=== PATIENT | female | born 1985 | race Caucasian/White ===

== ENCOUNTER → 2017-08-27 16:22 | Outpatient (CLI) | payer OTHER, SELFPAY ==
--- NOTE | 2017-08-27 16:31 | XR_ITS ---
XR knee LT 3V Ordering Physician: Surekha Castro Patient Age: 32 years: Female HISTORY: ITS.REASON: LEFT KNEE PAIN Medial and posterior knee pain no injury TECHNIQUE: 3 views left knee COMPARISON :None field FINDINGS Left knee intact with no fracture. Upper normal fluid suprapatella bursa. No prominent joint effusion. The joint spaces well-maintained with only slight sharpening the joint margins. IMPRESSION: Left knee intact. No fracture. Early sharpening the joint margins could reflect very early degenerative changes a but joint space well maintained on this nonweightbearing film.upper normal joint fluid
== END ==
PROVIDERS: PCP Nurse Practitioner Family; Visit Provider Nurse Practitioner Family
DX: M25.562 Pain in left knee (principal)
CPT/HCPCS: 73562

== ENCOUNTER 2019-11-18 18:49 | Emergency (ER) | payer OTHER, SELFPAY ==
[2019-11-18 19:07] VITALS: BP 95/64; PULSE 68; RESP 21; TEMP 36.4; O2SAT 97; BMI 30.9
[2019-11-18 19:07] LABS: Apearance,Urine Slightly Cloudy (Clear); Color,Urine Dark Yellow (Yellow)
[2019-11-18 19:08] LABS: Blood, Urine Trace (Negative); Glucose,Urine (UA) Negative (Negative); Ketones,Urine TRACE (Negative); Protein,Urine 2+ (Negative)
[2019-11-18 19:09] LABS: Bilirubin,Urine Trace (Negative); UTC Leukocyte Esterase,Urine 1+ (Negative); Urobilinogen,Urine 1 EU/dl (0.2)
[2019-11-18 19:10] LABS: UTC Nitrate,Urine Negative (Negative)
--- NOTE | 2019-11-18 19:16 | HMH.EDUTC ---
[facility] [place] Clinical Impression: UTI (urinary tract infection) Qualifiers: Urinary tract infection type: site unspecified Hematuria presence: without hematuria Qualified Code(s): N39.0 - Urinary tract infection, site not specified Disposition: Home, Self-Care Condition on Discharge: Good Instructions: Urinary Tract Infection, DI for Urinary Tract Infection (UTI) Additional Instructions: Drink plenty of fluids. Take tylenol or ibuprofen for pain or fever. Take the medications as directed. Follow up with your regular doctor. GO TO THE ER FOR ANY WORSENING SYMPTOMS The pyridium will make your urine turn orange, this is an expected side effect. It will stain your clothes if it comes into contact with them. Prescriptions: Ondansetron [Zofran 4mg ODT] 4 mg PO Q8HP PRN #20 tab.rapdis PRN Reason: Nausea Transmission Status: Pending to [employer] Sulfamethoxazole/Trimethoprim [Bactrim DS tablet] 1 each PO BID 7 Days #14 tab Transmission Status: Pending to [employer] Phenazopyridine HCl [Pyridium 200mg Tablet] 200 pow PO TID #6 tab Transmission Status: Pending to [employer] Referrals: Sonali Gan [Primary Care Provider] - Forms: Work/School Release Time of Disposition: 19:20 Medical Decision Making - Medical Records Medical records reviewed: No: I reviewed the patient's medical records. - Michael Inquiry Pt receiving controlled substance: No Vital Signs: 11/18/19 19:07 Temperature 97.6 F Temperature Source Oral Pulse Rate [Left Brachial] 68 Respiratory Rate 21 Blood Pressure [Left Arm] 95/64 L Blood Pressure Mean [Left Arm] 74 Blood Pressure Source [Left Arm] Automatic Cuff Blood Pressure Position [Left Arm] Sitting 02 Sat by Pulse Oximetry 97 Oxygen Delivery Method Room Air - Lab Data Lab results reviewed: Yes: I reviewed the patient's lab results. Lab Results 11/18/19 18:58: Urine Color Dark yellow, Urine Appearance Slightly cloudy, Urine pH 6.0, Ur Specific [place] 1.020, Urine Protein 2+, Urine Glucose (UA) Negative, Urine Ketones Trace, Urine Blood Trace, Urine Nitrate Negative, Urine Bilirubin Trace, Urine Urobilinogen 1, Ur Leukocyte Esterase 1+ A [facility] [place] - General Stated complaint: lower back pain\ Time Seen by Provider: 11/18/19 19:10 Mode of Arrival: Ambulatory Source of Information: Patient Limitations: No Limitations Description of Symptoms (Recalled from Triage Doc. by RN): PATIENT C/O LOWER BACK PAIN, BURNING WITH URINATION AND FREQUENCY X 1 WEEK HEENT Symptoms (Recalled from RN notes): No Resp Symptoms (Recalled from RN notes): No Skin Symptoms (Recalled from RN notes): No MS Symptoms (Recalled from RN notes): No Functional Status (Recalled from RN notes): WNL - History of Present Illness Provider Complaint: She c/o low back pain and burning while urinating for the past 2 days. She denies any vaginal bleeding, vaginal discharge or other symptoms. - Related Data Home Medications Medication Instructions Recorded Confirmed Estrogens, Conjugated [Premarin] 1 tab PO DAILY 05/01/19 11/18/19 Fluoxetine HCl [Prozac 20mg 60 mg PO DAILY 05/01/19 11/18/19 Capsule] Gabapentin [Gabapentin 300mg Cap] 300 mg PO TID 05/01/19 11/18/19 buprenorphine HCL [Buprenorphine 12 mg PO DAILY 05/01/19 11/18/19 HCl] Atorvastatin Calcium [Lipitor 40mg 40 mg PO HS 11/18/19 11/18/19 Tab] buPROPion HCL [Wellbutrin XL] 150 mg PO DAILY 11/18/19 11/18/19 Previous Rx's Medication Instructions Recorded Ondansetron [Zofran 4mg ODT] 4 mg PO Q8HP PRN #20 tab.rapdis 11/18/19 Phenazopyridine HCl [Pyridium 200 pow PO TID #6 tab 11/18/19 200mg Tablet] Sulfamethoxazole/Trimethoprim 1 each PO BID 7 Days #14 tab 11/18/19 [Bactrim DS tablet] Allergies Allergy/AdvReac Type Severity Reaction Status Date / Time codeine Allergy Verified 11/18/19 19:10 - Worker's Comp Is this a Worker's Comp case?: No [facility]
[2019-11-18 19:23] VITALS: BP 95/64; PULSE 68; RESP 21; TEMP 36.4; O2SAT 97
== END 2019-11-18 19:25 | disposition home or self-care (01) ==
PROVIDERS: Emergency Provider Nurse Practitioner Family; PCP Nurse Practitioner Family
DX: N30.00 Acute cystitis without hematuria (principal); F17.210 Nicotine dependence, cigarettes, uncomplicated; Z88.5 Allergy status to narcotic agent
CPT/HCPCS: 81003; 87086; 99201

== ENCOUNTER → 2020-01-17 10:32 | Outpatient (CLI) | payer OTHER, SELFPAY ==
--- NOTE | 2020-01-17 10:37 | XR_ITS ---
PROCEDURE: XR LUMBAR SPINE MIN 4V CLINICAL INDICATION: LUMBAR BACK PAIN W/ RADICULOPATHY COMPARISON: CR CXR CHEST(2 VIEWS-NOT PORTABLE) from 06/18/2015 FINDINGS: There is normal curvature and alignment. There is a transitional vertebrae at the lumbosacral junction with unilateral pseudoarthrosis of L5 on the left side. There are hypoplastic 12th ribs bilaterally. All lumbar vertebrae appear intact and disc spaces are well maintained. There is no pars defect. The SI joints appear normal. 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 Dictated by: Dr. Abdoul Fenton MD 01/17/2020 11:09 Dr. Abdoul Fenton MD in [place] 01/17/2020 11:09
== END ==
PROVIDERS: PCP Nurse Practitioner Family; Visit Provider Nurse Practitioner Family
DX: M54.16 Radiculopathy, lumbar region (principal)
CPT/HCPCS: 72110

== ENCOUNTER → 2020-03-07 15:08 | Outpatient (CLI) | payer OTHER, SELFPAY ==
[2020-03-09 11:27] LABS: Covid-19 Nasal PCR Sendout P&C NEGATIVE
== END ==
PROVIDERS: PCP Family Medicine; Visit Provider Family Medicine
DX: Z03.818 Encounter for observation for suspected exposure to other biological agents ruled out (principal)
CPT/HCPCS: U0004

== ENCOUNTER → 2020-06-01 07:54 | Outpatient (CLI) | payer OTHER, SELFPAY ==
--- NOTE | 2020-06-01 07:59 | MR_ITS ---
PROCEDURE: MR LUMBAR SPINE WO CON CLINICAL INDICATION: LBP Pt c/o lbp radiating down rt leg x1year. Pt states pain is getting worse. Pt denies injury, trauma, or prior surgery to lumbar spine. L-spine x-rays done 01/17/20. COMPARISON: CR XR LUMBAR SPINE MIN 4V from 01/17/2020 TECHNIQUE: Standard multiplanar multiecho sequences are performed without contrast. 3-D MIP and myelographic images are also rendered and reviewed FINDINGS: There is normal alignment. Spinal cord ends at the L2 level. L1-L2: Unremarkable. L2-L3: Unremarkable. L3-L4: Unremarkable. L4-5: Mild facet and ligamentum hypertrophy with mild bilateral foraminal narrowing L5-S1: Mild facet and ligamentum hypertrophy with mild bilateral foraminal narrowing. Small left renal cyst at 4 mm. The the minimal lumbar curvature convex left. The incidental note is made of a T1 and T2 hyperintensity in the S2 vertebral body at 10 mm consistent with a lipoma or hemangioma. IMPRESSION: 1. Mild facet and ligamentum hypertrophy at L4-5 and L5-S1 with mild bilateral foraminal narrowing. 2. No extruded herniated disc canal stenosis or other significant anomaly with other nonacute findings as described above. Dictated by: Abraham Nicolas MD 06/03/2020 10:27 Abraham Nicolas MD in [place] 06/03/2020 10:27
== END ==
PROVIDERS: PCP Family Medicine; Visit Provider Nurse Practitioner Family
DX: M54.16 Radiculopathy, lumbar region (principal); R94.130 Abnormal response to nerve stimulation, unspecified
CPT/HCPCS: 72148; 76376

== ENCOUNTER 2020-10-03 16:50 | Emergency (ER) | payer OTHER, SELFPAY ==
--- NOTE | 2020-10-03 17:17 | PC.NURSE ---
Heart Tones 143 BPM
[2020-10-03 17:27] LABS: UTC Strep Screen (Rapid) Positive (Negative)
[2020-10-03 17:37] VITALS: BP 111/71; PULSE 91; RESP 13; TEMP 36.6; O2SAT 98; BMI 31.7
--- NOTE | 2020-10-03 17:40 | HMH.EDUTC ---
[facility] [place] Clinical Impression: Strep throat Disposition: Home, Self-Care Condition on Discharge: Good Instructions: Strep Throat, DI for Strep Throat, Amoxicillin Additional Instructions: *Monitor Temp, Over the counter Motrin or Tylenol as directed/as needed Tylenol every 4 hours and Motrin every 6 hours (as long as your family doctor has told you that you can take it) for fever or pain. and straight to ER if unable to lower temp less than 101.0 after medication given *Warm salt water gargles may help to soothe the throat *Throat Lozenges *Warm fluids like tea with honey may help to soothe the throat *Sleep elevated *Humidifier/Vaporizer *If you did not take Penicillin shot or was unable to, start taking antibiotic immediately and make sure that you take it for the FULL length of time although you should start to feel better in 24-48 hours *change toothbrush and toothpaste 24-48 hours after starting to take antibiotics so you do not reinfect yourself Monitor Temp. Tylenol and/or Ibuprofen as needed. ER if fever is no less than 101 despite alternating Tylenol and Ibuprofen * Encourage fluids, water, Gatorade, powerade, pedialyte if /toddler/or child *Cold fluids, popsicles and ice cream may feel good on his throat Follow up IMMEDIATELY for new or worsening symptoms or no Noticeable improvement over the next 48-72 hours. 911 for difficulty breathing or swallowing Prescriptions: Amoxicillin [Amoxicillin 500mg Cap] 500 mg PO TID #30 cap Transmission Status: Pending to [id number] Referrals: Madai Powers APRN [Primary Care Provider] - As needed Forms: Work/School Release Time of Disposition: 17:42 Medical Decision Making - Michael Inquiry Pt receiving controlled substance: No Michael was queried for this patient: No Vital Signs: 10/03/20 17:37 Temperature 97.8 F Temperature Source Oral Pulse Rate [Left] 91 H Respiratory Rate 13 Blood Pressure [Right Arm] 111/71 Blood Pressure Mean [Right Arm] 84 02 Sat by Pulse Oximetry 98 - Lab Data Lab results reviewed: Yes: I reviewed the patient's lab results. Lab Results 10/03/20 17:25: Strep Scn Rapid Clinic Positive A [facility] [place] HPI - General Stated complaint: sore throat,cough, Time Seen by Provider: 10/03/20 17:40 Mode of Arrival: Ambulatory Source of Information: Patient Limitations: No Limitations Description of Symptoms (Recalled from Triage Doc. by RN): pt c/o a sore throat and cough. HEENT Symptoms (Recalled from RN notes): Yes (sore throat) Resp Symptoms (Recalled from RN notes): Yes (cough) Skin Symptoms (Recalled from RN notes): No MS Symptoms (Recalled from RN notes): No Functional Status (Recalled from RN notes): na - History of Present Illness Provider Complaint: Patient states that she has been having sore throat and cough for several days and has continued to get worse States that her throat hurts when she swallows and coughs and feels like it is swollen with white patchy areas on her throat - Related Data Home Medications Medication Instructions Recorded Confirmed Estrogens, Conjugated [Premarin] 1 tab PO DAILY 05/01/19 11/18/19 Fluoxetine HCl [Prozac 20mg 60 mg PO DAILY 05/01/19 11/18/19 Capsule] Gabapentin [Gabapentin 300mg Cap] 300 mg PO TID 05/01/19 11/18/19 buprenorphine HCL [Buprenorphine 12 mg PO DAILY 05/01/19 11/18/19 HCl] Atorvastatin Calcium [Lipitor 40mg 40 mg PO HS 11/18/19 11/18/19 Tab] buPROPion HCL [Wellbutrin XL] 150 mg PO DAILY 11/18/19 11/18/19 Previous Rx's Medication Instructions Recorded Ondansetron [Zofran 4mg ODT] 4 mg PO Q8HP PRN #20 tab.rapdis 11/18/19 Phenazopyridine HCl [Pyridium 200 pow PO TID #6 tab 11/18/19 200mg Tablet] Sulfamethoxazole/Trimethoprim 1 each PO BID 7 Days #14 tab 11/18/19 [Bactrim DS tablet] Amoxicillin [Amoxicillin 500mg 500 mg PO TID #30 cap 10/03/20 Cap] Allergies Allergy/AdvReac Type Severity Reaction Statu
[2020-10-03 18:06] VITALS: BP 109/75; PULSE 86; RESP 14; TEMP 36.6
== END 2020-10-03 18:07 | disposition home or self-care (01) ==
PROVIDERS: Emergency Provider Nurse Practitioner; PCP Nurse Practitioner Family
DX: J02.0 Streptococcal pharyngitis (principal); F17.210 Nicotine dependence, cigarettes, uncomplicated
CPT/HCPCS: 87880; 99202; G0463

== ENCOUNTER → 2021-03-26 13:08 | Outpatient (CLI) | payer OTHER, SELFPAY | PROVIDERS: Visit Provider Nurse Practitioner | DX: Z20.822 Contact with and (suspected) exposure to COVID-19 (principal) | CPT/HCPCS: C9803; U0003; U0005 ==

== ENCOUNTER 2021-04-03 10:49 | Emergency (ER) | payer OTHER, SELFPAY ==
[2021-04-03 12:45] VITALS: BP 0/0; PULSE 0; RESP 0; TEMP -17.7; TEMP 0
== END 2021-04-03 12:50 | disposition left against medical advice (07) ==
PROVIDERS: Emergency Provider Nurse Practitioner; PCP Nurse Practitioner Family
DX: Z53.21 Procedure and treatment not carried out due to patient leaving prior to being seen by health care provider (principal)

== ENCOUNTER 2021-06-21 12:09 | Emergency (ER) | payer OTHER, SELFPAY ==
[2021-06-21 12:15] VITALS: BP 102/62; PULSE 78; RESP 18; TEMP 36.7; O2SAT 98
[2021-06-21 12:36] LABS: Apearance,Urine Cloudy (Clear); Bilirubin,Urine Negative (Negative); Blood, Urine Negative (Negative); Color,Urine Dark Yellow (Yellow); Glucose,Urine (UA) Negative (Negative); Ketones,Urine Negative (Negative); PH,Urine 7.5 (5.0-8.5); Protein,Urine Negative (Negative); UTC Leukocyte Esterase,Urine 2+ (Negative); UTC Nitrate,Urine Negative (Negative); Urobilinogen,Urine 2 EU/dl (0.2)
[2021-06-21 12:38] VITALS: BP 102/62; PULSE 78; RESP 18; TEMP 36.7; O2SAT 98
--- NOTE | 2021-06-21 12:53 | HMH.EDUTC ---
[facility] [place] Clinical Impression: UTI (urinary tract infection) Disposition: Home, Self-Care Condition on Discharge: Good Instructions: DI for Urinary Tract Infection (UTI) Additional Instructions: Take all antibiotics as prescribed until gone Drink plenty of fluids, urinate frequently Urine culture results should be available Thursday evening Prescriptions: Ciprofloxacin HCl [Cipro 500mg Tab] 500 mg PO BID 5 Days #10 tab Transmission Status: Pending to [employer] Phenazopyridine HCl [Pyridium 200mg Tablet] 200 pow PO TID #6 tab Transmission Status: Pending to [employer] Referrals: Madai Powers APRN [Primary Care Provider] - Forms: Work/School Release Time of Disposition: 13:04 Medical Decision Making - Michael Inquiry Pt receiving controlled substance: No Vital Signs: 06/21/21 12:15 06/21/21 12:38 Temperature 98.0 F 98.0 F Temperature Source Oral Pulse Rate 78 Pulse Rate [Right Brachial] 78 Respiratory Rate 18 18 Blood Pressure 102/62 L Blood Pressure [Right Arm] 102/62 L Blood Pressure Mean [Right Arm] 75 Blood Pressure Source [Right Arm] Automatic Cuff Blood Pressure Position [Right Arm] Sitting 02 Sat by Pulse Oximetry 98 Oxygen Delivery Method Room Air - Lab Data Lab results reviewed: Yes: I reviewed the patient's lab results. Lab Results 06/21/21 12:32: Urine Color Dark yellow, Urine Appearance Cloudy, Urine pH 7.5, Ur Specific [place] 1.020, Urine Protein Negative, Urine Glucose (UA) Negative, Urine Ketones Negative, Urine Blood Negative, Urine Nitrate Negative, Urine Bilirubin Negative, Urine Urobilinogen 2, Ur Leukocyte Esterase 2+ A Orders (Tests/Meds): ORDERS Category Date Time Status Urine Culture Stat Micro 06/21/21 12:32 Received [facility] [place] HPI - General Stated complaint: trouble urinating Time Seen by Provider: 06/21/21 12:56 Mode of Arrival: Ambulatory Source of Information: Patient Limitations: No Limitations Description of Symptoms (Recalled from Triage Doc. by RN): PATIENT C/O BURNING WITH URINATION, LOWER ABDOMINAL PRESSURE AND LOWER BACK PAIN SINCE YESTERDAY HEENT Symptoms (Recalled from RN notes): No Resp Symptoms (Recalled from RN notes): No Skin Symptoms (Recalled from RN notes): No MS Symptoms (Recalled from RN notes): No Functional Status (Recalled from RN notes): WNL - History of Present Illness Provider Complaint: Low back pain, dysuria, suprapubic pain and pressure X 2 days. No fever. No nausea or vomiting. Onset (ago): day(s) (2) Location: back, abdomen Quality: burning Relieving factors: none Exacerbating factors: none Associated symptoms: denies other symptoms Treatments prior to arrival: none - Related Data Home Medications Medication Instructions Recorded Confirmed Estrogens, Conjugated [Premarin] 1 tab PO DAILY 05/01/19 11/18/19 Fluoxetine HCl [Prozac 20mg 60 mg PO DAILY 05/01/19 11/18/19 Capsule] Gabapentin [Gabapentin 300mg Cap] 300 mg PO TID 05/01/19 11/18/19 buprenorphine HCL [Buprenorphine 12 mg PO DAILY 05/01/19 11/18/19 HCl] Atorvastatin Calcium [Lipitor 40mg 40 mg PO HS 11/18/19 11/18/19 Tab] buPROPion HCL [Wellbutrin XL] 150 mg PO DAILY 11/18/19 11/18/19 Previous Rx's Medication Instructions Recorded Ondansetron [Zofran 4mg ODT] 4 mg PO Q8HP PRN #20 tab.rapdis 11/18/19 Phenazopyridine HCl [Pyridium 200 pow PO TID #6 tab 11/18/19 200mg Tablet] Sulfamethoxazole/Trimethoprim 1 each PO BID 7 Days #14 tab 11/18/19 [Bactrim DS tablet] Amoxicillin [Amoxicillin 500mg 500 mg PO TID #30 cap 10/03/20 Cap] Ciprofloxacin HCl [Cipro 500mg 500 mg PO BID 5 Days #10 tab 06/21/21 Tab] Phenazopyridine HCl [Pyridium 200 pow PO TID #6 tab 06/21/21 200mg Tablet] Allergies Allergy/AdvReac Type Severity Reaction Status Date / Time codeine Allergy Verified 11/18/19 19:10 - Worker's Comp Is this a Worker's Comp case?: No H History
== END 2021-06-21 13:13 | disposition home or self-care (01) ==
PROVIDERS: Emergency Provider Physician Assistant; PCP Nurse Practitioner Family
DX: N30.00 Acute cystitis without hematuria (principal); F17.210 Nicotine dependence, cigarettes, uncomplicated
CPT/HCPCS: 81003; 87086; 99212; G0463

== ENCOUNTER 2022-01-17 15:10 | Emergency (ER) | payer OTHER, SELFPAY ==
[2022-01-17 15:37] VITALS: BP 119/72; PULSE 73; RESP 18; TEMP 36.9; O2SAT 99; BMI 29.2
[2022-01-17 16:05] VITALS: BP 119/72; PULSE 73; RESP 18; TEMP 36.9; O2SAT 99; BMI 29.0
--- NOTE | 2022-01-17 16:30 | EXP.UTC ---
Discharge Plan Disposition Patient Disposition: Home, Self-Care Condition: Good Prescriptions Prescriptions: New amoxicillin 875 mg tablet 875 mg PO Q12H Qty: 20 0RF meclizine 25 mg tablet 25 mg PO TID PRN (Reason: dizziness) Qty: 15 0RF ibuprofen [IBU] 800 mg tablet 800 mg PO TIDP PRN (Reason: Moderate Pain) Qty: 20 0RF methylprednisolone [Medrol (Evangelista)] 4 mg tablets,dose pack See Rx Instructions .Route .COMPLEX 6 Days Qty: 21 0RF Rx Instructions: taper pack; No Action gabapentin 300 mg capsule 300 mg PO TID Qty: 90 3RF atorvastatin 40 mg tablet 40 mg PO HS Qty: 90 3RF conjugated estrogens 1.25 mg tablet 1.25 mg PO DAILY Qty: 90 3RF buprenorphine HCl 8 MG tablet, sublingual 12 mg PO DAILY Referrals Follow up/Referrals: Marko Reagan MD [Primary Care Provider] - See instructions Activity Restrictions/Add. Instructions Additional Instructions/Restrictions: *Monitor Temp, Over the counter Motrin or Tylenol as directed/as needed Tylenol every 4 hours and Motrin every 6 hours (as long as your family doctor has told you that you can take it) for fever or pain. and straight to ER if unable to lower temp less than 101.0 after medication given *Warm salt water gargles may help to soothe the throat *Throat Lozenges? *Warm fluids like tea with honey may help to soothe the throat? *Sleep elevated *Humidifier/Vaporizer Take medication as prescribed Follow up IMMEDIATELY for new or worsening symptoms or no Noticeable improvement over the next 48-72 hours. 911 for difficulty breathing or swallowing Clinical Impressions Clinical Impression: Otitis media Stand Alone Forms Stand Alone Forms: Work/School Release Instructions Patient Instructions: Middle Ear Infection, DI for Vertigo Discharge ED Provider: [facility] [place] HPI General Stated complaint: dizzy and stuffie Mode of Arrival: Ambulatory Source of Information: Patient Limitations: No Limitations Time Seen by Provider: 01/17/22 16:30 Description of Symptoms (Recalled from Triage Doc. by RN): PATIENT C/O DIZZINESS, CHILLS, AND PAIN TO BACK OF LEFT LEG HEENT Symptoms (Recalled from RN notes): Yes Resp Symptoms (Recalled from RN notes): No Skin Symptoms (Recalled from RN notes): No MS Symptoms (Recalled from RN notes): No Functional Status (Recalled from RN notes): WNL History of Present Illness Provider Complaint: Patient states that she started feeling bad yesterday States that she noticed if she would get dizzy if she turned her head too quickly or made a sudden movement she would feel dizzy State that her ears have felt full and sinus congestion and pressure States that also for about a month she has been having pain on and off in the back of her left leg States that it is a stinging like pain on and off Related Data Home Medications Medication Instructions Recorded Confirmed buprenorphine HCl 8 mg sublingual 12 mg PO DAILY drug addiction 05/01/19 12/06/21 tablet Previous Rx's Medication Instructions Recorded atorvastatin 40 mg tablet 40 mg PO HS Cholesterol #90 tabs 07/22/21 conjugated estrogens 1.25 mg tablet 1.25 mg PO DAILY hormones 07/22/21 replacement #90 tabs gabapentin 300 mg capsule 300 mg PO TID neuropathy #90 caps 12/06/21 amoxicillin 875 mg tablet 875 mg PO Q12H #20 tabs 01/17/22 ibuprofen 800 mg tablet (IBU) 800 mg PO TIDP PRN Moderate Pain 01/17/22 #20 tabs meclizine 25 mg tablet 25 mg PO TID PRN dizziness #15 tabs 01/17/22 methylprednisolone 4 mg tablets in See Rx Instructions .Route 01/17/22 a dose pack (Medrol (Evangelista)) .COMPLEX 6 days #21 tabs Allergies Allergy/AdvReac Type Severity Reaction Status Date / Time codeine Allergy Verified 12/06/21 13:59 Worker's Comp Is this a Worker's Comp case?: No PFSH PFS Medical History (Updated 01/17/22 @ 17:07 by Alta Ji APRN) Anxiety Depression Hyperlipidemia Urinary tract infecti
[2022-01-17 17:10] VITALS: BP 119/72; PULSE 73; RESP 18; TEMP 36.9; O2SAT 99
== END 2022-01-17 17:14 | disposition home or self-care (01) ==
PROVIDERS: Emergency Provider Nurse Practitioner; PCP Family Medicine
DX: H66.90 Otitis media, unspecified, unspecified ear (principal); M79.605 Pain in left leg
CPT/HCPCS: 99212; G0463

== ENCOUNTER 2022-06-08 13:26 | Emergency (ER) | payer OTHER, SELFPAY ==
[2022-06-08 14:00] VITALS: BP 118/69; PULSE 81; RESP 18; TEMP 37.2; O2SAT 97; BMI 29.0
[2022-06-08 14:14] LABS: Apearance,Urine Cloudy (Clear); Bilirubin,Urine Negative (Negative); Blood, Urine Trace (Negative); Color,Urine Yellow (Yellow); Glucose,Urine (UA) Negative (Negative); Ketones,Urine Negative (Negative); PH,Urine 7.5 (5.0-8.5); Protein,Urine Trace (Negative); Specific Gravity, Urine 1.015 (1.005-1.030); UTC Leukocyte Esterase,Urine 3+ (Negative); UTC Nitrate,Urine Positive (Negative); Urobilinogen,Urine 0.2 EU/dl (0.2)
--- NOTE | 2022-06-08 14:25 | EXP.UTC ---
Discharge Plan Disposition Patient Disposition: Home, Self-Care Condition: Good Prescriptions Prescriptions: New cefdinir 300 mg capsule 300 mg PO BID Qty: 20 0RF phenazopyridine [Pyridium] 200 mg tablet 200 mg PO Q8H 2 Days Qty: 6 0RF No Action gabapentin 300 mg capsule 300 mg PO TID Qty: 90 3RF atorvastatin 40 mg tablet 40 mg PO HS Qty: 90 3RF conjugated estrogens 1.25 mg tablet 1.25 mg PO DAILY Qty: 90 3RF buprenorphine HCl 8 MG tablet, sublingual 12 mg PO DAILY Referrals Follow up/Referrals: Marko Reagan MD [Primary Care Provider] - See instructions Activity Restrictions/Add. Instructions Additional Instructions/Restrictions: *Increase fluids. Water not Soda or Tea *Start antibiotic tomorrow your got a shot in the [facility] today and be sure to take as ordered for the FULL length of time although you should start to see improvement over the next 48 hours *Pyridium as needed Remember this medication will turn your urine . This is normal but it will stain what ever it gets on *You should not use Pyridium for more than 48 hours. If so , follow up with your primary physician to review urine culture and ensure that antibiotic is adequate for infection *Be SURE to follow up anytime for new or worsening symptoms with your family doctor. AND in 48 hours for urine culture results with your family doctor, if you do not have a doctor then you may call back to the [facility] for urine culture results and further treatment. We do recommend that you choose and establish care with a Primary Care Physician. ?AND follow up with them ?in 10-14 days to repeat UA to ensure infection is resolved and blood no longer present *Be sure to let your PCP know that we sent urine cultures from the [facility] so they can follow up to ensure that you area the on the correct antibiotic Call your doctor office and make appointment for 48 hours (2 days from today) ?to follow up and get the results of your urine culture and further treatment Clinical Impressions Clinical Impression: UTI (urinary tract infection) Qualifiers: Urinary tract infection type: site unspecified Hematuria presence: with hematuria Qualified Code(s): N39.0 - Urinary tract infection, site not specified Instructions Patient Instructions: Urinary Tract Infection, DI for Urinary Tract Infection (UTI) Discharge ED Provider: [facility] [place] General Stated complaint: possible uti Mode of Arrival: Ambulatory Source of Information: Patient Limitations: No Limitations Time Seen by Provider: 06/08/22 14:25 Description of Symptoms (Recalled from Triage Doc. by RN): PATIENT C/O LOWER BACK AND ABDOMINAL PAIN AND BURNING/PAIN WITH URINATION X 1 WEEK HEENT Symptoms (Recalled from RN notes): No Resp Symptoms (Recalled from RN notes): No Skin Symptoms (Recalled from RN notes): No MS Symptoms (Recalled from RN notes): No Functional Status (Recalled from RN notes): WNL History of Present Illness Provider Complaint: Patient states that she has been having achy like feeling in her lower back and pressure like feeling in her lower abdomen and burning when she urinates for about a week States that she feels like she may have a UTI Denies fever, denies chills Related Data Home Medications Medication Instructions Recorded Confirmed buprenorphine HCl 8 mg sublingual 12 mg PO DAILY drug addiction 05/01/19 04/18/22 tablet Previous Rx's Medication Instructions Recorded atorvastatin 40 mg tablet 40 mg PO HS Cholesterol #90 tabs 04/18/22 conjugated estrogens 1.25 mg tablet 1.25 mg PO DAILY hormones 04/18/22 replacement #90 tabs gabapentin 300 mg capsule 300 mg PO TID neuropathy #90 caps 04/18/22 cefdinir 300 mg capsule 300 mg PO BID #20 caps 06/08/22 phenazopyridine 200 mg tablet 200 mg PO Q8H pain 2 days #6 tabs 06/08/22 (Pyridium) Allergies Allergy/AdvReac Type Severity Reaction Status Date / Time codeine Allergy Verified 04/18/22 15:07 Worker's Comp
[2022-06-08 14:55] VITALS: BP 118/69; PULSE 81; RESP 18; TEMP 37.2; O2SAT 97
== END 2022-06-08 15:09 | disposition home or self-care (01) ==
PROVIDERS: Emergency Provider Nurse Practitioner; PCP Family Medicine
DX: N39.0 Urinary tract infection, site not specified (principal); R10.30 Lower abdominal pain, unspecified; M54.50 Low back pain, unspecified; B96.20 Unspecified Escherichia coli [E. coli] as the cause of diseases classified elsewhere
CPT/HCPCS: 96372; 81003; 87086; 87088; 87186; 99212; 99214; G0463; J0696

== ENCOUNTER → 2022-06-17 16:25 | Outpatient (CLI) | payer OTHER, SELFPAY ==
[2022-06-17 17:53] LABS: Chloride 98 mmol/L (98-107)
[2022-06-17 17:54] LABS: Potassium 4.2 mmoL/L (3.5-5.1); Sodium 137 mmol/L (136-145)
[2022-06-17 17:56] LABS: Blood Urea Nitrogen 12 mg/dl (7-17); Estimated Glomerular Filt Rate 46 ml/min (>60); GFR (African American) 56 ML/MIN (>60)
[2022-06-17 17:57] LABS: Alanine Aminotransferase 11 U/L (12-78); Albumin Level 4.1 g/dl (3.5-5.0); Albumin/Globulin Ratio 1.7 (1.1-1.8); Alkaline Phosphatase 75 U/L (38-126); Anion Gap 13.2 mEq/L (5-15); Aspartate Amino Transferase 22 U/L (14-36); Bilirubin,Total 0.3 mg/dl (0.2-1.3); Calcium 8.6 mg/dl (8.4-10.2); Carbon Dioxide 30 mmol/L (22.0-30.0); Globulin 2.4 g/dL (1.3-3.2); Glucose 78 mg/dl (74-100); Total Protein,Serum 6.5 g/dl (6.3-8.2)
[2022-06-19 20:08] LABS: QuantiFERON-TB Gold Plus Negative (Negative)
[2022-06-21 17:42] LABS: HIV Screen 4th Generation wRfx NON REACTIVE; Rapid Plasma Reagin Ab Titer NON REACTIVE
[2022-06-21 17:43] LABS: Hep B Core Ab, Total NEGATIVE; Hepatitis B Surface Antigen NEGATIVE; Hepatitis C Antibody NON REACTIVE
== END ==
PROVIDERS: Family Medicine; PCP Family Medicine
DX: F11.20 Opioid dependence, uncomplicated (principal); F13.10 Sedative, hypnotic or anxiolytic abuse, uncomplicated; R53.83 Other fatigue; Z11.4 Encounter for screening for human immunodeficiency virus [HIV]
CPT/HCPCS: 36415; 80053; 86480; 86593; 86703; 86704; 87340; 87380; G0432

== ENCOUNTER → 2022-09-02 11:50 | Outpatient (CLI) | payer OTHER, SELFPAY ==
[2022-09-04 09:04] LABS: HSV 2 IgG, Type Spec <0.91 index (0.00-0.90)
[2022-09-04 11:24] LABS: Rapid Plasma Reagin Ab Titer Non Reactive (NonRea<1:1)
== END ==
PROVIDERS: PCP Family Medicine; Visit Provider Family Medicine
DX: Z20.2 Contact with and (suspected) exposure to infections with a predominantly sexual mode of transmission (principal); B99.9 Unspecified infectious disease; B95.7 Other staphylococcus as the cause of diseases classified elsewhere
CPT/HCPCS: 86593; 86695; 86790; 87070; 87077; 87186; 87205

== ENCOUNTER 2023-01-18 13:35 | Emergency (ER) | payer OTHER, SELFPAY ==
[2023-01-18 13:50] VITALS: BP 124/70; PULSE 74; RESP 18; TEMP 36.7; O2SAT 100; BMI 30.1
[2023-01-18 14:07] LABS: UTC Strep Screen (Rapid) Negative (Negative)
--- NOTE | 2023-01-18 14:30 | EXP.UTC ---
Discharge Plan Disposition Patient Disposition: Home, Self-Care Condition: Good Prescriptions Prescriptions: New methylprednisolone [Medrol (Evangelista)] 4 mg tablets,dose pack See Rx Instructions .Route .COMPLEX 6 Days Qty: 21 0RF Rx Instructions: taper pack; guaifenesin [Mucinex] 600 mg tablet extended release 12hr 1,200 mg PO BID PRN (Reason: cough) Qty: 20 0RF azithromycin [Zithromax Z-Evangelista] 250 mg tablet See Rx Instructions .ROUTE .COMPLEX 5 Days Qty: 6 0RF Rx Instructions: For 250 mg dose pack: take 500 mg today (day 1), then 250 mg for 4 days (days 2-5) fluticasone propionate [Flonase Allergy Relief] 50 mcg/actuation spray,suspension 1 - 2 spray intranasal DAILY Qty: 16 0RF Rx Instructions: administer into each nostril No Action conjugated estrogens 1.25 mg tablet 1.25 mg PO DAILY Qty: 90 3RF atorvastatin 40 mg tablet 40 mg PO HS Qty: 90 3RF sulfamethoxazole-trimethoprim [Bactrim DS] 800-160 mg tablet 1 tab PO BID 10 Days Qty: 20 0RF valacyclovir [Valtrex] 1 gram tablet 1,000 mg PO BID Qty: 20 2RF gabapentin 300 mg capsule 300 mg PO TID Qty: 90 0RF buprenorphine HCl 8 MG tablet, sublingual 12 mg PO DAILY Referrals Follow up/Referrals: Marko Reagan MD [Primary Care Provider] - See instructions Activity Restrictions/Add. Instructions Additional Instructions/Restrictions: *Monitor Temp, Over the counter Motrin or Tylenol as directed/as needed Tylenol every 4 hours and Motrin every 6 hours (as long as your family doctor has told you that you can take it) for fever or pain. and straight to ER if unable to lower temp less than 101.0 after medication given *Warm salt water gargles may help to soothe the throat *Throat Lozenges? *Warm fluids like tea with honey may help to soothe the throat? *Sleep elevated *Humidifier/Vaporizer *Flonase 2 sprays in each nostril daily but be aware that it may take 2-3 days before you notice improvement *Your throat swab was sent for culture. Those results are typically sent to your primary care. Be sure to follow up in 2-3 days with your family doctor/primary care physician if no improvement so they can review those result and treat if necessary. If you don?t have a primary care doctor, I recommend you get one but in the mean time, you will have to return to a walk in clinic Follow up IMMEDIATELY for new or worsening symptoms or no Noticeable improvement over the next 48-72 hours. 911 for difficulty breathing or swallowing Clinical Impressions Clinical Impression: Sinusitis Qualifiers: Sinusitis location: unspecified location Chronicity: unspecified Qualified Code(s): J32.9 - Chronic sinusitis, unspecified Instructions Patient Instructions: DI for Sinusitis, Sinus Headache, Sore Throat Discharge ED Provider: Alta Ji [facility] General Stated complaint: runny nose,cough,sore throat Mode of Arrival: Ambulatory Source of Information: Patient Limitations: No Limitations Time Seen by Provider: 01/18/23 14:30 Description of Symptoms (Recalled from Triage Doc. by RN): PATIENT C/O COUGH, RUNNY NOSE, SORE THROAT AND CONGESTION X 4 DAYS HEENT Symptoms (Recalled from RN notes): Yes Resp Symptoms (Recalled from RN notes): Yes Skin Symptoms (Recalled from RN notes): No MS Symptoms (Recalled from RN notes): No Functional Status (Recalled from RN notes): WNL History of Present Illness Provider Complaint: Patient states she started feeling about 4-5 days ago states that she has been having sinus pain and pressure, drainage in the back of her throat and sore throat States that today she still wasnt feeling well so she came in Related Data Home Medications Medication Instructions Recorded Confirmed buprenorphine HCl 8 mg sublingual 12 mg PO DAILY drug addiction 05/01/19 09/02/22 tablet Previous Rx's Medication Instructions Recorded conjugated estrogens 1.25 mg tab
[2023-01-18 14:39] VITALS: BP 124/70; PULSE 74; RESP 18; TEMP 36.7; O2SAT 100
== END 2023-01-18 14:40 | disposition home or self-care (01) ==
PROVIDERS: Emergency Provider Nurse Practitioner; PCP Family Medicine
DX: J01.90 Acute sinusitis, unspecified (principal); R07.0 Pain in throat; R09.81 Nasal congestion; R09.82 Postnasal drip; F17.210 Nicotine dependence, cigarettes, uncomplicated; E78.5 Hyperlipidemia, unspecified
CPT/HCPCS: 87880; 99212; 99214; G0463

== ENCOUNTER 2023-02-02 18:05 | Emergency (ER) | payer OTHER, SELFPAY ==
--- NOTE | 2023-02-02 18:56 | EXP.UTC ---
Discharge Plan Disposition Patient Disposition: Home, Self-Care Condition: Good Prescriptions Prescriptions: New prednisone 10 mg tablet 10 mg PO DIRECTED 9 Days Qty: 21 0RF Rx Instructions: Take 4 tablets daily for 3 days, then take 2 tablets daily for 3 days, then take 1 tablet daily for 3 days, then stop. guaifenesin [Mucinex] 600 mg tablet extended release 12hr 600 - 1,200 mg PO BIDP PRN (Reason: Congestion) Qty: 30 0RF benzonatate [benzonatate] 100 mg capsule 100 mg PO TIDP PRN (Reason: Cough) Qty: 30 0RF amoxicillin-pot clavulanate 875-125 mg Tablet 1 tab PO Q12H Qty: 20 0RF No Action conjugated estrogens 1.25 mg tablet 1.25 mg PO DAILY Qty: 90 3RF atorvastatin 40 mg tablet 40 mg PO HS Qty: 90 3RF gabapentin 300 mg capsule 300 mg PO TID Qty: 90 0RF buprenorphine HCl 8 MG tablet, sublingual 12 mg PO DAILY fluticasone propionate [Flonase Allergy Relief] 50 mcg/actuation spray,suspension 1 - 2 spray intranasal DAILY Qty: 16 0RF Rx Instructions: administer into each nostril Referrals Follow up/Referrals: Marko Reagan MD [Primary Care Provider] - See instructions Activity Restrictions/Add. Instructions Additional Instructions/Restrictions: Drink plenty of fluids. Take tylenol or ibuprofen for pain or fever. Take the medications as directed. Follow up with your regular doctor. GO TO THE ER FOR ANY WORSENING SYMPTOMS Clinical Impressions Clinical Impression: Bronchitis Stand Alone Forms Stand Alone Forms: Work/School Release Instructions Patient Instructions: Acute Bronchitis, DI for Acute Bronchitis Discharge ED Provider: Robert Aguilar [facility] General Stated complaint: cough, congestion Time Seen by Provider: 02/02/23 18:56 History of Present Illness Provider Complaint: She states that for the past 2 weeks she has had sinus congestion. She states that his symptoms are worsening. Related Data Home Medications Medication Instructions Recorded Confirmed buprenorphine HCl 8 mg sublingual 12 mg PO DAILY drug addiction 05/01/19 09/02/22 tablet Previous Rx's Medication Instructions Recorded conjugated estrogens 1.25 mg tablet 1.25 mg PO DAILY hormones 04/18/22 replacement #90 tabs atorvastatin 40 mg tablet 40 mg PO HS Cholesterol #90 tabs 09/02/22 gabapentin 300 mg capsule 300 mg PO TID neuropathy #90 caps 01/15/23 fluticasone propionate 50 1 - 2 spray intranasal DAILY #16 01/18/23 mcg/actuation nasal grams spray,suspension (Flonase Allergy Relief) amoxicillin 875 mg-potassium 1 tab PO Q12H #20 tabs 02/02/23 clavulanate 125 mg tablet benzonatate 100 mg capsule 100 mg PO TIDP PRN Cough #30 caps 02/02/23 guaifenesin 600 mg tablet, 600 - 1,200 mg PO BIDP PRN 02/02/23 extended release 12 hr (Mucinex) Congestion #30 tabs prednisone 10 mg tablet 10 mg PO DIRECTED 9 days #21 02/02/23 tabs Allergies Allergy/AdvReac Type Severity Reaction Status Date / Time codeine Allergy Verified 02/02/23 19:33 [facility] Disclaimer: The information contained in this section may have been updated after the patient was seen, as this information can be updated by other users. Medical History (Updated 02/02/23 @ 19:41 by Robert Aguilar APRN) Anxiety Depression Hyperlipidemia Precancerous lesion Urinary tract infection Surgical History H/O total hysterectomy History of cholecystectomy Social History Smoking Status: Current every day smoker tobacco type: cigarettes packs per day: 1 alcohol intake: never current occupational status: student and other Travel in the last 8 weeks: None ROS Obtained: Yes All systems reviewed & no additional complaints except as documented Constitutional Constitutional: Reports poor appetite Eyes Eyes: Reports system reviewed and no additional complaints, except
[2023-02-02 19:00] VITALS: BP 115/69; PULSE 80; RESP 18; TEMP 36.5; O2SAT 98; BMI 29.0
[2023-02-02 19:40] VITALS: BP 115/69; PULSE 86; RESP 18; TEMP 36.5; O2SAT 98
== END 2023-02-02 19:40 | disposition home or self-care (01) ==
PROVIDERS: Emergency Provider Nurse Practitioner Family; PCP Family Medicine
DX: J20.9 Acute bronchitis, unspecified (principal); R09.81 Nasal congestion; R05.9 Cough, unspecified; E78.5 Hyperlipidemia, unspecified; F17.210 Nicotine dependence, cigarettes, uncomplicated
CPT/HCPCS: 99212; 99214; G0463

== ENCOUNTER 2023-03-12 09:45 | Outpatient (CLI) | payer OTHER, SELFPAY ==
[2023-03-12 22:48] LABS: Amphetamine/Metha Screen,Urine Negative ng/ml (<1000); Barbiturates Screen,Urine Negative ng/ml (<200); Benzodiazepines Screen,Urine Negative ng/ml (<200); Cannabinoid Screen,Urine Negative ng/ml (<50); Cocaine Screen,Urine Negative ng/ml (<300); Methadone Screen,Urine Negative ng/ml (<300); Opiate Screen,Urine Negative ng/ml (<300); Phencyclidine Screen,Urine Negative ng/ml (<25)
== END 2023-03-12 23:59 ==
LOC: LAB.DROPOF 03-13 10:39
PROVIDERS: PCP Family Medicine; Visit Provider Family Medicine
DX: Z79.899 Other long term (current) drug therapy (principal)
CPT/HCPCS: 80307

== ENCOUNTER 2023-09-30 13:47 | Emergency (ER) | payer OTHER, SELFPAY ==
[2023-09-30 14:00] VITALS: BP 110/73; PULSE 83; RESP 20; TEMP 36.8; O2SAT 100; BMI 29.2
--- NOTE | 2023-09-30 14:06 | XR_ITS ---
FINAL REPORT CLINICAL HISTORY: fall/left knee pain COMPARISON: None FINDINGS: LEFT KNEE 3 views of the left knee were obtained. There is no acute fracture or dislocation. There are mild degenerative changes. Visualized joint spaces are normally aligned. Soft tissues are unremarkable. IMPRESSION: Degenerative changes without acute bony abnormality. Reviewed, Interpreted and Dictated by Chiquis Long MD Transcribed by Hailey Hernandez Authenticated and [facility]
--- NOTE | 2023-09-30 14:35 | ED_ITS ---
Discharge Plan Disposition Patient Disposition: Home, Self-Care Condition: Good Prescriptions Prescriptions: No Action Premarin 1.25 mg tablet See Rx Instructions .ROUTE .COMPLEX Qty: 90 3RF Dose Instruction: TAKE 1 TABLET 1 TIME EACH DAY FOR HORMONE REPLACEMENT Rx Instructions: TAKE 1 TABLET 1 TIME EACH DAY FOR HORMONE REPLACEMENT gabapentin 300 mg capsule 300 mg PO TID Qty: 90 3RF atorvastatin 40 mg tablet See Rx Instructions .ROUTE .COMPLEX Qty: 90 3RF Dose Instruction: TAKE 1 TABLET 1 TIME EACH DAY IN THE EVENING FOR CHOLESTEROL Rx Instructions: TAKE 1 TABLET 1 TIME EACH DAY IN THE EVENING FOR CHOLESTEROL buprenorphine HCl 8 MG tablet, sublingual 12 mg PO DAILY Referrals Follow up/Referrals: Marko Reagan MD [Primary Care Provider] - See instructions Activity Restrictions/Add. Instructions Additional Instructions/Restrictions: *weight bearing as tolerated *RICE, Rest the extremity, Ice 15-20 minutes 3-4 times daily, Compress- wear the rodney wrap as discussed as much as possible to help reduce swelling and pain, Elevate the extremity when at rest *Rodney wrap is for support and help control swelling, use it except in the shower. Be sure that is not to tight but not to loose either *Elevate when resting? *Ibuprofen 600-800mg every 6-8 hours as needed for pain an inflammation. If need something more can take Tylenol in between doses of Ibuprofen to help Clinical Impressions Clinical Impression: Contusion of knee Qualifiers: Encounter type: initial encounter Laterality: left Qualified Code(s): S80.02XA - Contusion of left knee, initial encounter Instructions Patient Instructions: How To Perform RICE (Rest, Ice, Compress, Elevate), Ibuprofen Print Language Print Language: Citizen Of [place] Discharge ED Provider: Alta Ji [facility] General Stated complaint: AO 09/23/23 fell, inj left knee Mode of Arrival: Ambulatory Source of Information: Patient Limitations: No Limitations Time Seen by Provider: 09/30/23 14:36 Description of Symptoms (Recalled from Triage Doc. by RN): PATIENT C/O LEFT KNEE PAIN AFTER FALLING AND INJURING IT A WEEK AGO HEENT Symptoms (Recalled from RN notes): No Resp Symptoms (Recalled from RN notes): No Skin Symptoms (Recalled from RN notes): No MS Symptoms (Recalled from RN notes): Yes Functional Status (Recalled from RN notes): WNL History of Present Illness Provider Complaint: Patient states that last week she tripped and fell and landed on her knees States that both knees was bothering her but her right one is no longer hurting but still having pain in her right knee when she is walking or putting weight on it so today she came in to get it checked Related Data Home Medications ?Medication ?Instructions ?Recorded ?Confirmed buprenorphine HCl 8 mg sublingual 12 mg PO DAILY drug addiction 05/01/19 09/30/23 tablet Previous Rx's ?Medication ?Instructions ?Recorded conjugated estrogens 1.25 mg See Rx Instructions .Route 07/13/23 tablet (Premarin) .COMPLEX #90 tabs gabapentin 300 mg capsule 300 mg PO TID neuropathy #90 caps 07/13/23 atorvastatin 40 mg tablet See Rx Instructions .Route 09/23/23 .COMPLEX #90 tabs Allergies Allergy/AdvReac Type Severity Reaction Status Date / Time codeine Allergy Verified 07/13/23 10:52 Worker's Comp Is this a Worker's Comp case?: No [facility] Disclaimer: The information contained in this section may have been updated after the patient was seen, as this information can be updated by other users. Medical History Precancerous lesion cervix Depression Anxiety Urinary tract infection Hyperlipidemia Surgical History H/O total hysterectomy History of cholecystectomy Social History Smoking Status: Current every day smoker tobacco type: cigarettes packs per day: 1 alcohol intake: never current occupational status: student and other Travel in the last 8 weeks: None ROS Obtained: Yes All systems reviewed & no additional complaints except as documented and Yes Systems reviewed as appropriate & no additional complaints except as documented Constitutional Constitutional: Reports system reviewed and no additional complaints, except as documented and Reports as per HPI ENT Ears, Nose, Mouth, and Throat: Reports system reviewed and no additional complaints, except as documented and Reports as per HPI Cardiovascular Cardiovascular: Reports system reviewed and no additional complaints, except as documented and Reports as per HPI Respiratory Respiratory: Reports system reviewed and no additional complaints, except as documented and Reports as per HPI Gastrointestinal Gastrointestingal: Reports system reviewed and no additional complaints, except as documented and as per HPI Musculoskeletal Musculoskeletal: Reports system reviewed and no additional complaints, except as documented, Reports as per HPI and Reports other Comments: pain in left knee with walking and bearing weight Physical Exam General General appearance: alert and in no apparent distress ENT ENT exam: Present mucous membranes moist Respiratory Respiratory exam: Present normal lung sounds bilaterally; Absent respiratory distress or wheezes Cardiovascular Cardiovascular exam: Present regular rate, normal rhythm and normal heart sounds Expanded Lower Extremity Exam Left: Leg image: 2 1. pain with walking, healing abrasion noted, no swelling no discoloration Knee exam: Present tenderness and abrasion; Absent swelling, ecchymosis, deformity, erythema or effusion Lower leg exam: Present normal inspection Ankle exam: Present normal inspection Neurological Exam Neurological exam: Present alert, oriented X3 and normal gait Medical Decision Making Michael Inquiry Pt receiving controlled substance: No Michael was queried for this patient: No Vital Signs: 09/30/23 14:00 Temperature 98.2 F Temperature Source Oral Pulse Rate [Left Brachial] 83 Respiratory Rate 20 Blood Pressure [Left Arm] 110/73 Blood Pressure Mean [Left Arm] 85 Blood Pressure Source [Left Arm] Automatic Cuff Blood Pressure Position [Left Arm] Sitting 02 Sat by Pulse Oximetry 100 Oxygen Delivery Method Room Air Orders (Tests/Meds): ORDERS Category Date Time Status Knee XR left 3 views [XR knee LT 3V] Stat Exams 09/30/23 14:06 Taken Radiology Data #1: Image(s): Knee Image Reviewed: Yes I have reviewed radiologist's interpretation FINDINGS: LEFT KNEE 3 views of the left knee were obtained. There is no acute fracture or dislocation. There are mild degenerative changes. Visualized joint spaces are normally aligned. Soft tissues are unremarkable. IMPRESSION: Degenerative changes without acute bony abnormality.
[2023-09-30 15:22] VITALS: BP 110/73; PULSE 83; RESP 20; TEMP 36.8; O2SAT 100
== END 2023-09-30 15:28 | disposition home or self-care (01) ==
PROVIDERS: Emergency Provider Nurse Practitioner; PCP Family Medicine
DX: S80.02XA Contusion of left knee, initial encounter (principal); W01.10XA Fall on same level from slipping, tripping and stumbling with subsequent striking against unspecified object, initial encounter
CPT/HCPCS: 73562; 99212; 99213; G0463